=== PATIENT | male | born 1945 | race Caucasian/White ===

== ENCOUNTER → 2016-12-17 | Day surgery (SDC) | payer OTHER ==
[~2016-12-17] MED LIST: ACETAMINOPHEN 1000 MG/100 ML VIAL IV ONE; BUPIVACAINE/EPINEPHRINE 0.5% 50 ML VIAL ONE; KETOROLAC TROMETHAMINE 30 MG/ML (IVP) VIAL IV PUSH ONE; LACTATED RINGER'S 1000 ML INJ 1,000 ML ONE; LIDOCAINE 1%/EPINEPHrine 1:100,000 SOLN 50 ML VIAL ONE; ONDANSETRON HCL 4 MG/2 ML VIAL IV PUSH ONE; PROPOFOL 200 MG/20 ML AMP IV ONE; ceFAZolin INJ 1,000 MG VIAL ONE
--- NOTE | 2016-12-17 09:04 | TN ---
cc: JUAN RAMÍREZ M.D. DATE OF SURGERY 12/17/2016 PREOPERATIVE DIAGNOSIS Left inguinal hernia. POSTOPERATIVE DIAGNOSIS Left inguinal hernia. PROCEDURE Repair of left inguinal hernia direct type with mesh ANESTHESIA General SURGEON Dr. Ramírez INDICATIONS This is a pleasant 71-year-old gentleman who has a symptomatic left inguinal hernia. Plans were made for above. PROCEDURE The patient taken to the operating room, placed in the supine position. After anesthesia, his groin is prepped and draped with Betadine. We had previously done a time-out and markings and given preoperative antibiotics. We anesthetized the area with the Marcaine solution, made an oblique incision overlying the internal and external ring, dissected down through Mae's fascia identifying the external oblique aponeurosis. Cord structures surrounded with a Riri drain. The ilioinguinal nerve was preserved. The direct defect is reduced. The piece of polypropylene mesh was then cut to size, secured to the pubic tubercle, Patricio's ligament and the iliopubic tract out laterally avoiding the femoral vessels. The medial edge is secured to the conjoined tendon and the tails were fashioned to themselves and the internal oblique aponeurosis. We then close the external oblique aponeurosis, Mae's is done with a 2-0 Vicryl and Mae's with a 2-0 Vicryl. Skin is closed with 4-0 Vicryl. Steri-Strips were applied. Sterile bandage applied. The patient tolerated the procedure well and had no immediate postop complications. MD DOLORES Mesa/NIK /8:49 AM /8:55 AM ALLY
== END | disposition home or self-care (01) ==
LOC: ESDC 06:43
PROVIDERS: ATTEND Surgery
DX: K40.90 Unilateral inguinal hernia, without obstruction or gangrene, not specified as recurrent (principal)
CPT/HCPCS: 00830; 49505; C1781; J0131; J0690; J1885; J2405; J3010; J7120